=== PATIENT | male | born 1995 | race Asian ===

== ENCOUNTER 2020-10-03 13:50 | Emergency (ER) | payer OTHER ==
[~2020-10-03] VITALS: Ht 172.7 cm; Wt 81.5 kg
[2020-10-03 14:27] VITALS: BP 129/83
[2020-10-03 15:38] LABS: COVID AG,FIA SOURCE NASOPHARYNGEAL
== END 2020-10-03 14:55 | disposition home or self-care (01) ==
LOC: EMS 13:50
DX: U07.1 COVID-19 (principal)
CPT/HCPCS: 87426; 99283; C9803; U0003